=== PATIENT | male | born 1980 | race Two or more races ===

== ENCOUNTER 2019-10-07 17:08 | Emergency (ER) | payer MEDICAID, OTHER ==
[~2019-10-07] VITALS: Ht 170.2 cm; Wt 87.5 kg
[2019-10-07] MEDS ORDERED: IBUPROFEN 800 MG TAB PO ONE (17:30)
[2019-10-07 20:30] VITALS: BP 136/74
== END 2019-10-07 20:39 | disposition home or self-care (01) ==
LOC: ER 17:08
DX: S46.911A Strain of unspecified muscle, fascia and tendon at shoulder and upper arm level, right arm, initial encounter (principal); J45.909 Unspecified asthma, uncomplicated; F17.210 Nicotine dependence, cigarettes, uncomplicated; X58.XXXA Exposure to other specified factors, initial encounter; Y93.89 Activity, other specified; Y99.8 Other external cause status; Y92.89 Other specified places as the place of occurrence of the external cause
CPT/HCPCS: 73030; 73200

== ENCOUNTER → 2020-01-09 | Emergency (ER) | payer MEDICAID | END | disposition left against medical advice (07) | LOC: ER 19:49 | DX: M25.571 Pain in right ankle and joints of right foot (principal); Z53.21 Procedure and treatment not carried out due to patient leaving prior to being seen by health care provider ==

== ENCOUNTER 2023-12-27 15:03 | Emergency (ER) | payer MEDICAID ==
[~2023-12-27] VITALS: Ht 170.2 cm; Wt 100.1 kg
[2023-12-27 16:12] VITALS: BP 140/92; PULSE 105; RESP 18; TEMP 98.4; O2SAT 96
[2023-12-27] MEDS: KETOROLAC TROMETH 60MG/2ML VIAL IM ONE (16:21)
[2023-12-27] MEDS ORDERED: TRAM50TA2 PO (17:29)
== END 2023-12-27 17:44 | disposition home or self-care (01) ==
LOC: ER 15:03
DX: M24.9 Joint derangement, unspecified (principal); J45.909 Unspecified asthma, uncomplicated; F17.210 Nicotine dependence, cigarettes, uncomplicated; Z79.899 Other long term (current) drug therapy
CPT/HCPCS: 73000; 73030; 96372; 99284; J1885